=== PATIENT | female | born 1955 ===

== ENCOUNTER 2019-01-28 12:14 | Outpatient (CLI) | payer OTHER | END 2019-01-28 12:19 | disposition home or self-care (01) | LOC: LAB 12:14 | DX: J11.1 Influenza due to unidentified influenza virus with other respiratory manifestations (principal); J11.89 Influenza due to unidentified influenza virus with other manifestations ==

== ENCOUNTER 2019-12-01 13:03 | Outpatient (CLI) | payer OTHER | END 2019-12-01 13:17 | disposition home or self-care (01) | LOC: RAD 13:03 | DX: K76.0 Fatty (change of) liver, not elsewhere classified (principal); Z96.653 Presence of artificial knee joint, bilateral ==